=== PATIENT | male | born 1975 | race Caucasian/White ===

== ENCOUNTER 2022-03-19 09:12 | Emergency (ER) | payer OTHER ==
[~2022-03-19] VITALS: Ht 165.1 cm; Wt 70.3 kg
[2022-03-19 09:28] VITALS: BP 123/90
[2022-03-19] MEDS ORDERED: IBUPROFEN 800 MG TAB PO ONE (10:25)
--- NOTE | 2022-03-19 10:45 | NUR ---
ATTEMPTED TO BRING PT BACK, NOT FOUND IN LOBBY/OUTSIDE
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
--- NOTE | 2022-03-19 10:55 | NUR ---
PT AMBULATED TO ER BED 11
--- NOTE | 2022-03-19 11:05 | NUR ---
BLOOD DRAWN BY [employer] HELPER
[2022-03-19 11:30] VITALS: BP 128/81
[2022-03-19 11:30] LABS: ALBUMIN 3.8 g/dL (3.4-5.0); ANION GAP 14.4 (8-16); CARBON DIOXIDE 28.1 mmol/L (21-32); CREATININE 0.8 mg/dL (0.6-1.3); POTASSIUM 4.5 mmol/L (3.5-5.1); TOTAL BILIRUBIN 0.2 mg/dL (0.0-1.0)
[2022-03-19] MEDS ORDERED: LIDOCAINE 1% 500 MG/ 50 ML VIAL INJ ONE (11:45)
[2022-03-19] MEDS ORDERED: LIDOCAINE MPF 1% 5 ML ONE (11:45)
[2022-03-19] MEDS ORDERED: LIDOCAINE MPF 1% 10 MG/ML VIAL INJ ONE (11:50)
[2022-03-19 12:07] LABS: BASOPHILS # (AUTO) 0.1 K/uL (0.00-0.22); BASOPHILS % (AUTO) 1.1 % (0.0-2.0); EOSINOPHILS # (AUTO) 0.1 K/uL (0-0.4); EOSINOPHILS % (AUTO) 1.6 % (0.0-4.0); LYMPHOCYTES # (AUTO) 1.8 K/uL (2.0-11.5); LYMPHOCYTES % (AUTO) 30.5 % (20.5-51.1); MEAN CORPUSCULAR HEMOGLOBIN 29 pg (27-31); MEAN CORPUSCULAR HGB CONC 33 g/dL (33-37); MEAN CORPUSCULAR VOLUME 88.2 fL (80-94); MONOCYTES # (AUTO) 0.4 K/uL (0.8-1.0); MONOCYTES % (AUTO) 7.5 % (1.7-9.3); NEUTROPHILS # (AUTO) 3.5 K/uL (1.8-7.7); NEUTROPHILS % (AUTO) 59.3 % (42.2-75.2); PLATELET COUNT (AUTO) 264 K/uL (140-450); RED BLOOD CELL COUNT(AUTO) 4.43 MIL/uL (4.20-6.10); RED CELL DISTRIBUTION WIDTH 15.5 % (11.6-13.7); WHITE BLOOD COUNT (AUTO) 5.9 K/uL (4.8-10.8)
--- NOTE | 2022-03-19 12:08 | NUR ---
left knee joint aspiration collected by dr. niño. per jolene from lab, specimen can be collected in specimen cup. specimen collected and sent to lab.
[2022-03-19] MEDS ORDERED: SULF-58 PO (13:26)
[2022-03-19] MEDS ORDERED: IBUP-2213 PO (13:26)
== END 2022-03-19 13:30 | disposition home or self-care (01) ==
LOC: MED 09:12
DX: M25.462 Effusion, left knee (principal); Z79.899 Other long term (current) drug therapy
CPT/HCPCS: 20611; 36415; 73562; 80053; 85025; 85651; 86140; 87070; 90471; 90715; 99284; J2001; 87075